=== PATIENT | male | born 1980 | race Caucasian/White ===

== ENCOUNTER 2017-09-23 01:03 | Emergency (ER) | payer MEDICAID ==
[~2017-09-23] VITALS: Ht 170.2 cm; Wt 71.3 kg
[2017-09-23 01:05] VITALS: BP 156/90
[2017-09-23] MEDS ORDERED: AMOXICILLIN/CLAV 875-125MG TABLET PO ONE (02:30)
[2017-09-23] MEDS ORDERED: AMOXICILLIN/CLAV 875-125MG TABLET ONE (02:39)
== END 2017-09-23 02:54 | disposition home or self-care (01) ==
LOC: ED 02:30
DX: S91.051A Open bite, right ankle, initial encounter (principal); W54.0XXA Bitten by dog, initial encounter; Y93.89 Activity, other specified; Y92.89 Other specified places as the place of occurrence of the external cause; Y99.9 Unspecified external cause status
CPT/HCPCS: 12002; 99284